=== PATIENT | female | born 1980 | race Caucasian/White ===

== ENCOUNTER 2018-11-07 07:58 | Emergency (ER) | payer OTHER ==
[~2018-11-07] VITALS: Ht 154.9 cm; Wt 62.6 kg
[2018-11-07] MEDS ORDERED: PRENA1 TRUE CO1 EACH PO (08:05)
== END 2018-11-07 13:12 | disposition home or self-care (01) ==
LOC: ER 07:58
DX: O26.851 Spotting complicating pregnancy, first trimester (principal); Z34.81 Encounter for supervision of other normal pregnancy, first trimester